=== PATIENT | male | born 1995 ===

== ENCOUNTER 2021-01-25 13:52 | Emergency (ER) | payer SELFPAY ==
--- NOTE | 2021-01-25 14:17 | Emergency Department Report ---
ED Extremity Problem HPI - General Chief complaint: Extremity Injury, Upper Stated complaint: GLASS IN HAND Time Seen by Provider: 01/25/21 13:59 Source: patient Mode of arrival: Ambulatory Limitations: No Limitations - History of Present Illness Initial comments: Patient is a 25-year-old male presents emergency room complaints of swelling to the left middle finger which he noticed today. He states he also had a small amount of odorous drainage. Patient states that 2 weeks ago he cut himself with a piece of glass from his phone that cracked. He states he was not seen at that time. Patient states he also just recently cut down his fingernails. He denies any fever, numbness, weakness. No past medical history. No allergies to medications. - Related Data Previous Rx's Medication Instructions Recorded Last Taken Type Mupirocin [Bactroban 2% OINT] 1 applic TP TID #1 tube 01/25/21 Unknown Rx Sulfamethoxazole/Trimethoprim 1 each PO BID 7 Days #14 tablet 01/25/21 Unknown Rx [Bactrim DS TAB] Allergies Allergy/AdvReac Type Severity Reaction Status Date / Time No Known Allergies Allergy Verified 01/25/21 14:19 ED Review of Systems ROS: Stated complaint: GLASS IN HAND Other details as noted in HPI Comment: All other systems reviewed and negative ED Past Medical Hx - Medications Home Medications: Home Medications Medication Instructions Recorded Confirmed Last Taken Type Mupirocin [Bactroban 2% OINT] 1 applic TP TID #1 tube 01/25/21 Unknown Rx Sulfamethoxazole/Trimethoprim 1 each PO BID 7 Days #14 tablet 01/25/21 Unknown Rx [Bactrim DS TAB] ED Physical Exam - General Limitations: No Limitations General appearance: alert, in no apparent distress - Head Head exam: Present: atraumatic, normocephalic - Eye Eye exam: Present: normal appearance - ENT ENT exam: Present: mucous membranes moist - Extremities Exam Extremities exam: Present: other (trace edema to the surrounding nailbed of the left middle finger, no drainage, no fluctuance, FROM of the left middle finger, no palpable foreign body, no opening, no necrosis, neurovascularly intact) - Neurological Exam Neurological exam: Present: alert, oriented X3 - Psychiatric Psychiatric exam: Present: normal affect, normal mood - Skin Skin exam: Present: warm, dry ED Course Vital Signs 01/25/21 01/25/21 13:56 14:20 Temperature 98 F 98.0 F Pulse Rate 61 75 Respiratory 16 16 Rate Blood Pressure 122/75 Blood Pressure 133/75 [Right] O2 Sat by Pulse 98 99 Oximetry ED Medical Decision Making - Radiology Data Radiology results: report reviewed Ordering Physician: ASMITA VIZCAINO Date of Service: 01/25/21 Procedure(s): XR hand 3+V LT Accession Number(s): [id number] cc: ASMITA VIZCAINO Fluoro Time In Minutes: LEFT HAND 3 VIEW(S) INDICATION / CLINICAL INFORMATION: possible glass left middle finger COMPARISON: None available. FINDINGS: BONES / JOINT(S): No acute fracture or subluxation. No significant arthritis. SOFT TISSUES: There is a 0.3 cm density within the soft tissues of the distal portion of the third digit, likely corresponding to foreign body of concern. ADDITIONAL FINDINGS: None. Signer Name: Eder Acosta DO Signed: 01/25/2021 2:20 PM Workstation Name: [id number] [facility] [email or web address] [id number] Transcribed By: DEONTE Dictated By: EDER ACOSTA DO Electronically Authenticated By: EDER ACOSTA DO Signed Date/Time: 01/25/21 142 DD/ 141 TD/TT: - Medical Decision Making Patient is a 25-year-old male presents emergency room complaints of swelling to the left middle finger which he noticed today. He states he also had a small amount of odorous drainage. Patient states that 2 weeks ago he cut himself with a piece of glass from his phone that cracked. He states he was not seen at that time. Patient states he also just recently cut down his fingernails. He denies any fever, numbness, weakness. No past medical history. No allergies to medications. Vitals are stable. On exam:trace edema to the surrounding nailbed of the left middle finger, no drainage, no fluctuance, FROM of the left middle finger, no palpable foreign body, no opening, no necrosis, neurovascularly intact. x-ray left hand BONES / JOINT(S): No acute fracture or subluxation. No significant arthritis. SOFT TISSUES: There is a 0.3 cm density within the soft tissues of the distal portion of the third digit, likely corresponding to foreign body of concern. ADDITIONAL FINDINGS: None. Examination presents distant with cellulitis. There is no drainable abscess at this time. Foreign body has been present for 2 weeks and on x-ray is beneath the nail. Discussed findings with patient and that he would need to follow-up outpatient. Advised patient Please use medication as prescribed. Please soak your finger in Epson salt. Follow-up with the seo specialist. Return to emergency room for any new or worsening symptoms. Critical care attestation.: If time is entered above; I have spent that time in minutes in the direct care of this critically ill patient, excluding procedure time. ED Disposition Clinical Impression: Foreign body Cellulitis Qualifiers: Site of cellulitis: unspecified site Qualified Code(s): L03.90 - Cellulitis, unspecified Disposition: HOME / SELF CARE / HOMELESS Is pt being admited?: No Does the pt Need Aspirin: No Condition: Stable Instructions: Cellulitis, Adult, Skin Foreign Body Additional Instructions: Please use medication as prescribed. Please soak your finger in Epson salt. Follow-up with the seo specialist. Return to emergency room for any new or worsening symptoms. Prescriptions: Sulfamethoxazole/Trimethoprim [Bactrim DS TAB] 1 each PO BID 7 Days #14 tablet Mupirocin [Bactroban 2% OINT] 1 applic TP TID #1 tube Referrals: PRIMARY CAREMD [Primary Care Provider] - 3-5 Days PARUL CHOE MD [Staff Physician] - 3-5 Days Time of Disposition: 14:47 Print Language: SAMI
[2021-01-25 14:21] VITALS: BP 122/75
--- NOTE | 2021-01-25 14:24 | XRay Report ---
LEFT HAND 3 VIEW(S) INDICATION / CLINICAL INFORMATION: possible glass left middle finger COMPARISON: None available. FINDINGS: BONES / JOINT(S): No acute fracture or subluxation. No significant arthritis. SOFT TISSUES: There is a 0.3 cm density within the soft tissues of the distal portion of the third di git, likely corresponding to foreign body of concern. ADDITIONAL FINDINGS: None. Signer Name: Eder Acosta DO Signed: 01/25/2021 2:20 PM Workstation Name: [id number]
== END 2021-01-25 15:14 | disposition home or self-care (01) ==
LOC: ED 13:52
DX: S60.453A Superficial foreign body of left middle finger, initial encounter (principal); L03.90 Cellulitis, unspecified; W25.XXXA Contact with sharp glass, initial encounter; Y93.89 Activity, other specified; Y92.89 Other specified places as the place of occurrence of the external cause; Y99.8 Other external cause status; Z79.899 Other long term (current) drug therapy
CPT/HCPCS: 99283